=== PATIENT | male | born 1975 ===

== ENCOUNTER 2018-07-13 13:54 | Outpatient (REF) | payer OTHER, SELFPAY ==
[2018-07-13 18:48] LABS: Glucose 83 mg/dL (70-100); TSH 1.69 uIU/mL (0.358-3.74)
== END 2018-07-13 14:14 ==
LOC: NCHCN 13:54
PROVIDERS: PCP Physician Assistant; Visit Provider Internal Medicine
DX: Z00.00 Encounter for general adult medical examination without abnormal findings (principal); Z13.1 Encounter for screening for diabetes mellitus; Z13.29 Encounter for screening for other suspected endocrine disorder
CPT/HCPCS: 82947; 84443

== ENCOUNTER 2019-07-19 20:35 | Outpatient (REF) | payer OTHER, SELFPAY | END 2019-07-19 20:55 | LOC: NCHCN 20:35 | PROVIDERS: PCP Physician Assistant; Visit Provider Internal Medicine | DX: R69 Illness, unspecified (principal) | CPT/HCPCS: 84153 ==

== ENCOUNTER 2019-07-20 20:53 | Outpatient (REF) | payer OTHER, SELFPAY ==
[2019-07-23 11:18] LABS: PSA, Screening 1.1 ng/mL (0.0-2.5)
== END 2019-07-20 21:13 ==
LOC: NCHCN 20:53
PROVIDERS: PCP Physician Assistant; Visit Provider Internal Medicine
DX: Z00.00 Encounter for general adult medical examination without abnormal findings (principal); Z12.5 Encounter for screening for malignant neoplasm of prostate
CPT/HCPCS: 84153

== ENCOUNTER 2020-07-24 19:14 | Outpatient (REF) | payer OTHER, SELFPAY ==
[2020-07-24 21:34] LABS: Calculated LDL 122 mg/dL (<100); Cholesterol 197 mg/dL (<200); HDL Cholesterol 53 mg/dL (40-60); Triglyceride 112 mg/dL (<150)
[2020-07-25 17:53] LABS: PSA, Screening 1.7 ng/mL (0.0-2.5)
== END 2020-07-24 19:15 | disposition home or self-care (01) ==
LOC: NCHCN 19:14
PROVIDERS: PCP Physician Assistant; Visit Provider Internal Medicine
DX: Z00.00 Encounter for general adult medical examination without abnormal findings (principal); Z13.220 Encounter for screening for lipoid disorders; Z12.5 Encounter for screening for malignant neoplasm of prostate
CPT/HCPCS: 80061; 84153

== ENCOUNTER 2022-08-06 19:33 | Outpatient (REF) | payer OTHER, SELFPAY ==
[2022-08-09 09:21] LABS: PSA, Screening 1.5 ng/mL (<=2.5)
== END 2022-08-06 19:34 | disposition home or self-care (01) ==
LOC: NCHCN 19:33
PROVIDERS: PCP Physician Assistant; Visit Provider Internal Medicine
DX: Z00.00 Encounter for general adult medical examination without abnormal findings (principal); Z12.5 Encounter for screening for malignant neoplasm of prostate
CPT/HCPCS: 84153

== ENCOUNTER 2023-08-12 17:43 | Outpatient (REF) | payer OTHER, SELFPAY ==
[2023-08-12 18:57] LABS: Abs Immature Grans 0.01 10^3/uL (0.0-0.06); Absolute Basophil Count 0.06 10^3/uL (0.0-0.2); Absolute Eosinophil Count 0.16 10^3/uL (0.0-0.7); Absolute Lymphocyte Count 1.98 10^3/uL (1.2-3.4); Absolute Monocyte Count 0.49 10^3/uL (0.1-0.8); Absolute Neutrophil Count 2.94 10^3/uL (1.2-6.7); Basophils % 1.1 %; Eosinophils % 2.8 %; HCT 45.4 % (40.0-50.0); HGB 15.9 g/dL (13.5-17.5); Immature Grans % 0.2 %; Lymphocytes % 35.1 %; MCH 32.3 pg (27.0-33.0); MCV 92 fL (80-95); MPV 11.2 fL (8.0-11.0); Monocytes % 8.7 %; Neutrophils % 52.1 %; Platelet Count 198 10^3/uL (130-400); RBC 4.93 10^6/uL (4.36-5.78); RDW 11.4 % (11.8-14.1); RDW-SD 38.4 fL; WBC 5.64 10^3/uL (4.4-10.8)
[2023-08-15 10:57] LABS: PSA, Screening 1.4 ng/mL (<=2.5)
== END 2023-08-12 17:44 | disposition home or self-care (01) ==
LOC: NCHCN 17:43
PROVIDERS: PCP Physician Assistant; Visit Provider Internal Medicine
DX: Z00.00 Encounter for general adult medical examination without abnormal findings (principal); Z12.5 Encounter for screening for malignant neoplasm of prostate
CPT/HCPCS: 84153; 85025

== ENCOUNTER 2024-10-19 18:19 | Outpatient (REF) | payer OTHER, SELFPAY ==
[2024-10-19 19:26] LABS: Calculated LDL 124 mg/dL (<100); Cholesterol 197 mg/dL (<200); HDL Cholesterol 47 mg/dL (>or=40); Triglyceride 130 mg/dL (<150)
== END 2024-10-19 18:20 | disposition home or self-care (01) ==
LOC: NCHCN 18:19
PROVIDERS: PCP Physician Assistant; Visit Provider Internal Medicine
DX: Z12.5 Encounter for screening for malignant neoplasm of prostate (principal); Z13.220 Encounter for screening for lipoid disorders
CPT/HCPCS: 80061; 84154